=== PATIENT | male | born 1985 | race Caucasian/White ===

== ENCOUNTER 2018-06-02 08:06 | Emergency (ER) | payer MEDICAID ==
[~2018-06-02] VITALS: Ht 180.3 cm; Wt 117.9 kg
[2018-06-02 08:10] VITALS: BP 159/74
== END 2018-06-02 09:16 | disposition left against medical advice (07) ==
LOC: MERGE 08:06 → EDBD 08:06 → ER 08:06
DX: R06.02 Shortness of breath (principal); Z53.21 Procedure and treatment not carried out due to patient leaving prior to being seen by health care provider

== ENCOUNTER → 2018-06-03 08:25 | Emergency (ER) | payer MEDICAID ==
[~2018-06-03] VITALS: Ht 180.3 cm; Wt 117.9 kg
[~2018-06-03 08:25] MED LIST: LORazepam 0.5 MG TAB PO ONE
[2018-06-03 08:32] VITALS: BP 136/92
== END | disposition home or self-care (01) ==
LOC: MERGE 08:25 → ER 08:25
DX: F41.9 Anxiety disorder, unspecified (principal); F31.9 Bipolar disorder, unspecified; F17.210 Nicotine dependence, cigarettes, uncomplicated; Z76.0 Encounter for issue of repeat prescription

== ENCOUNTER 2020-03-22 08:51 | Emergency (ER) | payer MEDICAID ==
[2020-03-22 08:55] VITALS: BP 152/85
== END 2020-03-22 10:02 | disposition home or self-care (01) ==
LOC: ER 08:51
DX: S22.32XA Fracture of one rib, left side, initial encounter for closed fracture (principal); F17.210 Nicotine dependence, cigarettes, uncomplicated; W01.0XXA Fall on same level from slipping, tripping and stumbling without subsequent striking against object, initial encounter; Y93.01 Activity, walking, marching and hiking; Y92.090 Kitchen in other non-institutional residence as the place of occurrence of the external cause; Y99.8 Other external cause status
CPT/HCPCS: 71101

== ENCOUNTER 2021-02-05 08:12 | Emergency (ER) | payer MEDICAID ==
[~2021-02-05] VITALS: Ht 182.9 cm; Wt 124.7 kg
[2021-02-05 09:07] VITALS: BP 143/88
[2021-02-05] MEDS ORDERED: LORazepam 0.5 MG TAB PO ONE (10:00)
== END 2021-02-05 10:33 | disposition home or self-care (01) ==
LOC: ER 08:12
DX: F41.9 Anxiety disorder, unspecified (principal); F20.9 Schizophrenia, unspecified; F17.210 Nicotine dependence, cigarettes, uncomplicated

== ENCOUNTER 2022-06-29 21:24 | Emergency (ER) | payer MEDICAID, OTHER ==
[~2022-06-29] VITALS: Ht 188 cm; Wt 136.0 kg
[2022-06-29 21:50] VITALS: BP 0/0
== END 2022-06-30 ==
LOC: ER 21:24 → EDUNIT# 21:24 → EDBD 21:24 → ER 06-30
DX: I46.9 Cardiac arrest, cause unspecified (principal); H57.04 Mydriasis; R41.82 Altered mental status, unspecified; R06.89 Other abnormalities of breathing
CPT/HCPCS: 31500; 36430; 86850; 86900; 86901; 86920; 92950; 99291; P9016